=== PATIENT | male | born 1955 | race Caucasian/White ===

== ENCOUNTER → 2021-05-15 | Outpatient (CLI) | payer OTHER ==
[~2021-05-15] MED LIST: ACETAMINOPHEN325 MG PO; B12 PO; BEET ROOT PO; CALCIUM + VITA1 EACH PO; CANDICIDAL CAP1 EACH PO; FLORINEF 0.1 M0.1 MG PO; GINKGO BILOBA60 MG PO; GLUCOSAMINE1000 MG PO; LION'S MANE PO; MEN 50 PLUS MU1 EACH PO; PERCOCET 5-3251 EACH PO; PROBIOTIC PO; PROTONIX 40 MG40 M1 PO
[2021-05-15 11:22] LABS: HEMOGLOBIN 13.5 gm/dl (14.0-17.5); RED BLOOD COUNT 4.18 M/UL (4.20-5.50); WHITE BLOOD COUNT 8.7 K/UL (4.5-11.0)
[2021-05-15 11:39] LABS: BUN/CREATININE RATIO 27 (0-10)
== END ==
LOC: OPSV2 09:54
PROVIDERS: Orthopaedic Surgery
DX: Z01.818 Encounter for other preprocedural examination (principal)
CPT/HCPCS: 80048; 85025; 93005

== ENCOUNTER → 2021-05-19 | Day surgery (SDC) | payer OTHER ==
[~2021-05-19] VITALS: Ht 175.3 cm; Wt 72.1 kg
== END | disposition home or self-care (01) ==
LOC: OR 05:55
DX: M25.842 Other specified joint disorders, left hand (principal); G89.29 Other chronic pain; M25.742 Osteophyte, left hand; J44.9 Chronic obstructive pulmonary disease, unspecified; J45.909 Unspecified asthma, uncomplicated; K21.9 Gastro-esophageal reflux disease without esophagitis; Z90.49 Acquired absence of other specified parts of digestive tract; Z98.84 Bariatric surgery status; Z88.1 Allergy status to other antibiotic agents; Z20.822 Contact with and (suspected) exposure to COVID-19
CPT/HCPCS: J0690; J1100; J1885; J2001; J2250; J2405; J2704; J3010; J7120